=== PATIENT | male | born 1985 | race Caucasian/White ===

== ENCOUNTER 2024-02-01 23:27 | Inpatient (IN) | payer BC ==
[~2024-02-01] VITALS: Ht 175.3 cm; Wt 91.5 kg
[2024-02-01] MEDS ORDERED: ISOVUE-370 76% 100ML VIAL As Ordered ONE (23:34)
[2024-02-02 00:09] LABS: VENOUS BASE EXCESS -5.6 (-2.0-2.0); VENOUS HCO3 21.2 MMOL/L (23.0-27.0); VENOUS O2 SATURATION 76.3 % (60.0-80.0); VENOUS PARTIAL PRESSURE CO2 46.2 mmHg (38.0-50.0); VENOUS PARTIAL PRESSURE O2 41.2 mmHg (30.0-50.0); VENOUS STANDARD HCO3 19.4 MMOL/L; VENOUS TOTAL CO2 22.6 MMOL/L (24.0-28.0)
[2024-02-02 00:25] LABS: INR 0.97; PARTIAL THROMBOPLASTIN TIME 20.5 SECONDS (24.8-34.2); PROTHROMBIN TIME 12.6 SECONDS (12.5-14.5)
[2024-02-02 00:28] LABS: BASO # 0.1 10^3/uL (0.0-0.2); BASO % 0.8 % (0.0-1.0); EOS # 0.4 10^3/uL (0.0-0.5); EOS % 3.1 % (0.0-3.0); HEMATOCRIT 47.4 % (42.0-52.0); HEMOGLOBIN 16.8 g/dl (13.5-17.5); LYMPH # 5.1 10^3/uL (1.5-5.0); LYMPH % 43.2 % (24.0-44.0); MEAN CORPUSCULAR HEMOGLOBIN 33.3 pg (27.0-33.0); MEAN CORPUSCULAR HGB CONC 35.4 g/dl (32.0-36.5); MONO # 0.7 10^3/uL (0.0-0.8); MONO % 6.1 % (2.0-8.0); NEUTROPHILS # 5.4 10^3/uL (1.5-8.5); PLATELET COUNT, AUTOMATED 374 10^3/uL (150-450); RED BLOOD COUNT 5.04 10^6/uL (4.30-6.10); WHITE BLOOD COUNT 11.8 10^3/uL (4.0-10.0)
[2024-02-02] MEDS: NS 1,000 ML IV ONE (00:36)
[2024-02-02] MEDS: MORPHINE 4 MG/ML 1ML VIAL IV ONE (01:00)
[2024-02-02 01:32] LABS: ETHYL ALCOHOL (ETHANOL) 0.099 % (0.000-0.010); LIPASE 47 U/L (12-53)
[2024-02-02 01:33] LABS: AMYLASE 27 U/L (30-118)
[2024-02-02 01:34] LABS: ALBUMIN 3.7 G/DL (3.2-5.2); ALKALINE PHOSPHATASE 63 U/L (46-116); ALT/SGPT 200 U/L (7.0-40); AST/SGOT 240 U/L (<34); BILIRUBIN,DIRECT < 0.1 MG/DL (<0.4); BILIRUBIN,TOTAL 0.3 MG/DL (0.3-1.2); BLOOD UREA NITROGEN 14 MG/DL (9-23); CALCIUM LEVEL 8.4 MG/DL (8.5-10.1); CARBON DIOXIDE LEVEL 21 MMOL/L (20-31); CHLORIDE LEVEL 104 MMOL/L (98-107); CK-MB VALUE MASS 7.8 NG/ML (<3.6); CREATININE FOR GFR 0.92 MG/DL (0.70-1.30); GLOMERULAR FILTRATION RATE > 60.0 (>60); GLUCOSE, FASTING 81 MG/DL (60-100); POTASSIUM SERUM 4.7 MMOL/L (3.5-5.1); SODIUM LEVEL 134 MMOL/L (136-145); TOTAL PROTEIN 6.2 G/DL (5.7-8.2)
[2024-02-02 01:45] LABS: CPK CREATINE PHOSPHOKINASE 694 U/L (46-171); MB/CK RELATIVE INDEX 1.12 (< OR =4)
[2024-02-02 02:07] LABS: APPEARANCE, URINE CLEAR (CLEAR); BACTERIA, URINE AUTO NEGATIVE (NEGATIVE); BILIRUBIN, URINE AUTO NEGATIVE (NEGATIVE); BLOOD, URINE BLOOD 3+ (NEGATIVE); COLOR, URINE YELLOW (YELLOW); GLUCOSE, URINE (UA) AUTO NEGATIVE (NEGATIVE); KETONE, URINE AUTO NEGATIVE (NEGATIVE); LEUKOCYTE ESTERASE, URINE AUTO NEGATIVE (NEGATIVE); NITRITE, URINE AUTO NEGATIVE (NEGATIVE); PROTEIN, URINE AUTO 2+ mg/dL (NEGATIVE); RBC, URINE AUTO 4 /HPF (0-3); SPECIFIC GRAVITY URINE AUTO 1.029 (1.002-1.035); SQUAMOUS EPITHELIAL CELL UR AU 0 /HPF (0-6); UROBILINOGEN, URINE AUTO 0.2 mg/dL (0.0-2.0); WBC, URINE AUTO 4 /HPF (0-3)
[2024-02-02] MEDS: MORPHINE 4 MG/ML 1ML VIAL IV PRN (02:23)
[2024-02-02 02:36] LABS: AMPHETAMINES LEVEL URINE NEGATIVE (NEGATIVE); BARBITURATES URINE NEGATIVE (NEGATIVE); BENZODIAZEPINES URINE NEGATIVE (NEGATIVE); CANNABINOIDS URINE NEGATIVE (NEGATIVE); COCAINE METABOLITE URINE NEGATIVE (NEGATIVE); PHENCYCLIDINE URINE NEGATIVE (NEGATIVE)
[2024-02-02] MEDS ORDERED: HOME MED LIST COMPLETE! XX SCH (02:45)
[2024-02-02 02:46] LABS: METHADONE URINE NEGATIVE (NEGATIVE)
[2024-02-02 03:14] LABS: OPIATES URINE POSITIVE (NEGATIVE)
[2024-02-02] MEDS: NICOTINE 21MG/24HR 1 EA TRANSDERMAL TD ONE (03:45)
[2024-02-02] MEDS ORDERED: LORazepam 2 MG TAB PO PRN (03:45)
[2024-02-02 04:26] LABS: HEMATOCRIT 43.5 % (42.0-52.0); HEMOGLOBIN 15.3 g/dl (13.5-17.5); MEAN CORPUSCULAR HEMOGLOBIN 33.1 pg (27.0-33.0); MEAN CORPUSCULAR HGB CONC 35.2 g/dl (32.0-36.5); MEAN CORPUSCULAR VOLUME 94.2 fl (80.0-96.0); PLATELET COUNT, AUTOMATED 310 10^3/uL (150-450); RED BLOOD COUNT 4.62 10^6/uL (4.30-6.10); WHITE BLOOD COUNT 13.8 10^3/uL (4.0-10.0)
[2024-02-02] MEDS: ACETAMINOPHEN TAB 650MG DOSE (2X325MG) PO PRN (05:51)
[2024-02-02] MEDS: MORPHINE 2 MG/ML 1ML VIAL IV PRN ×2 (05:51→10:02)
[2024-02-02] MEDS: LIDOCAINE 5% (LIDODERM) PATCH TD SCH (05:51)
[2024-02-02 08:13] LABS: ALBUMIN 3.9 G/DL (3.2-5.2); ALKALINE PHOSPHATASE 68 U/L (46-116); ALT/SGPT 195 U/L (7.0-40); AST/SGOT 184 U/L (<34); BILIRUBIN,TOTAL 0.4 MG/DL (0.3-1.2); BLOOD UREA NITROGEN 14 MG/DL (9-23); CALCIUM LEVEL 8.8 MG/DL (8.5-10.1); CARBON DIOXIDE LEVEL 22 MMOL/L (20-31); CHLORIDE LEVEL 106 MMOL/L (98-107); CREATININE FOR GFR 0.98 MG/DL (0.70-1.30); GLOMERULAR FILTRATION RATE > 60.0 (>60); GLUCOSE, FASTING 91 MG/DL (60-100); MAGNESIUM LEVEL 1.9 MG/DL (1.8-2.4); POTASSIUM SERUM 4.5 MMOL/L (3.5-5.1); SODIUM LEVEL 135 MMOL/L (136-145); TOTAL PROTEIN 6.3 G/DL (5.7-8.2)
[2024-02-02] MEDS: NICOTINE 21MG/24HR 1 EA TRANSDERMAL TD SCH (09:00)
[2024-02-02 09:15] VITALS: BP 134/71
[2024-02-02 09:16] VITALS: BP 134/71; TEMP 98.1; O2SAT 99
[2024-02-02] MEDS: FOLIC ACID 1MG TAB PO SCH (10:02)
[2024-02-02] MEDS: MULTIVITAMINS/MINERALS THERAP 1 TAB PO SCH (10:02)
[2024-02-02] MEDS: SENNA 8.6 MG TAB (SENOKOT) PO SCH (10:02)
[2024-02-02] MEDS: THIAMINE 100 MG TAB PO SCH (10:02)
[2024-02-02] MEDS ORDERED: IBUP-1114 PO ×2 (11:09→11:21)
[2024-02-02] MEDS ORDERED: FOLI1TAB11 PO (11:10)
[2024-02-02] MEDS ORDERED: THIA100TA PO (11:10)
== END 2024-02-02 15:08 | disposition home or self-care (01) | DRG 135 ==
LOC: M ED 23:27 → EDBD 23:27 → M ED INP 02-02 03:55 → M PCU 02-02 09:00
PROVIDERS: ADMIT Family Medicine; ATTEND Internal Medicine
DX: S22.41XA Multiple fractures of ribs, right side, initial encounter for closed fracture (principal); S27.329A Contusion of lung, unspecified, initial encounter; M62.82 Rhabdomyolysis; F10.20 Alcohol dependence, uncomplicated; V89.2XXA Person injured in unspecified motor-vehicle accident, traffic, initial encounter; F17.200 Nicotine dependence, unspecified, uncomplicated; Z88.0 Allergy status to penicillin; Z79.899 Other long term (current) drug therapy

== ENCOUNTER → 2024-02-20 | Outpatient (CLI) | payer BC ==
[~2024-02-20] MED LIST: FOLI1TAB11 PO; IBUP-1114 PO; THIA100TA PO
== END ==
LOC: M WUC 12:07
PROVIDERS: ATTEND Physician Assistant Medical
DX: S22.41XA Multiple fractures of ribs, right side, initial encounter for closed fracture (principal); X58.XXXA Exposure to other specified factors, initial encounter; Y92.9 Unspecified place or not applicable

== ENCOUNTER → 2024-03-31 | Outpatient (CLI) | payer BC | LOC: M OUTALCOH 10:41 | PROVIDERS: ATTEND Psychiatry & Neurology Psychiatry | DX: Z03.89 Encounter for observation for other suspected diseases and conditions ruled out (principal); F17.200 Nicotine dependence, unspecified, uncomplicated ==

== ENCOUNTER 2024-04-12 15:57 | Outpatient (RCR) | payer BC | END 2024-04-21 | LOC: M OUTALCOH 15:57 | PROVIDERS: ATTEND Psychiatry & Neurology Psychiatry | DX: Z03.89 Encounter for observation for other suspected diseases and conditions ruled out (principal); F17.200 Nicotine dependence, unspecified, uncomplicated ==